=== PATIENT | male | born 1960 | race Caucasian/White ===

== ENCOUNTER 2022-04-12 06:44 | Observation (INO) | payer BC ==
[~2022-04-12] VITALS: Ht 172.7 cm; Wt 95.4 kg
[~2022-04-12 06:44] MED LIST: BAYER CHEWABLE81 MG PO; DICLOFENAC SODI75 MG PO; ESOMEPRAZOLE MA40 MG PO; FLONASE ALLERG9.9 ML NAS; HYDROCHLOROTHIA25 MG PO; LIPITOR20 MG PO; MELOXICAM15 MG PO; METOPROLOL SUCC50 MG PO; OXYCODONE HCL5 MG PO; XARELTO10 MG PO
[2022-04-12] MEDS ORDERED: TYLENOL EXTRA500 MG PO (07:39)
--- NOTE | 2022-04-12 13:34 | NUR ---
04/12/22 1334 Sheets,L[place] 1312 PT ARRIVED TO PACU ON 6L VIA MASK, RESP EVEN AND UNLABORED. PT COUGHING OFF AND ON. PT VERY DROWSY AND UNABLE TO FOLLOW COMMANDS. 1316 PT MORE AWAKE AND O2 REMOVED, PT ABLE TO FOLLOW COMMANDS AND DEEP BREATHING NOTED OFF AND ON. PT COUGHING AND SPITTING OUT SCANT AMOUNT OF CLEAR SPUTUM. HOB INCREASED SLIGHTLY. 1322 MD AT BEDSIDE TALKING TO PT. 1325 XRAY AT BEDSIDE. PT RPEORTS PAIN 5/10 AND TOLERBALE AT THIS TIME. PT DENIES NAUSEA.
--- NOTE | 2022-04-12 14:04 | NUR ---
oriented to the room, call light and menu - rn updated whiteboard, set up cpox, pt in pacu.
[2022-04-12] MEDS ORDERED: FLUTICASONE PRO16 GM NAS (15:28)
[2022-04-12] MEDS ORDERED: METOPROLOL TART50 MG PO (15:30)
--- NOTE | 2022-04-12 16:00 | NUR ---
pt call light answered, pt stated he was all done. upon entering room pt up from bsc and standing up in room w fww. pt assisted back to bed sba w fww. cryo cuff put back on. ice provided to pt. no further needs. call light within reach
--- NOTE | 2022-04-12 16:07 | NUR ---
CALL TO [facility] RE: LACTIC ACID LEVEL 0.9 WNL - UPDATED ON PT 400 ML OUTPUT VOID, AND UP TO BSC WITH PT. NEW ORDERS FOR IV NS@125 AND NO BOLUS NEEDED. PT TOLLERATED A REG DIET OF TUR[place] SAND WITH NO PROBLEMS - CONFIRMED MEDICATIONS WITH PHARMACY AND TXA IS HERE AND STARTED VIA PUMP, FOLLOWED BY FLUIDS. NO BOLUS CONFIRMED WITH PROVIDER. PT IS NOTED TO BE A DRINKER AND IS PALE AND DIAPORETIC, AFEBRILE AT THIS TIME AND DENIES PAIN MEDICATIONS 5/10 LEFT LEG PAIN, WITH CMS WNL AND DRESGING CDI.
--- NOTE | 2022-04-12 16:55 | NUR ---
pt was pale and diaphoretic, reports having heat turned down, and is feeling cool now. pt reports that he usually drinks liquer daily a few drinks but has not had any in a few days - but from time to time he doesn't drink and is ok - re assured him that is was ok, but to let staff know if he felt tremors, or any signs of withdrawl as we can get him something to help. he feels like it was from his fever breaking and is now afebrile at 97. call light in reach.
[2022-04-12] MEDS ORDERED: CLARITIN10 MG PO (17:32)
--- NOTE | 2022-04-12 17:33 | NUR ---
MED REC COMPLETE
--- NOTE | 2022-04-12 18:09 | NUR ---
REGULAR PEPSI PROVIDED TO THIS PT - HE DECLINES DINNER AND STATES HIS WILL BRING IN MEAL. LEFT LEG WNL.
--- NOTE | 2022-04-12 19:15 | NUR ---
ASSUMED CARE OF PT UPON RECEIVING BEDSIDE HANDOFF REPORT FROM DAY NURSE. PT AOX4, NAD, NO C/O. FAMILY MEMBER AT BEDSIDE. PT DECLINES NEED FOR PAIN MED. DRESSSING C/D/I. CRYO CUFF IN PLACE TO LLE. PT TOLERATING WELL. WILL CONTINUE TO MONITOR AND FOLLOW POC.
--- NOTE | 2022-04-12 21:50 | NUR ---
IN TO ANSWER CALL LIGHT. PT LAYING IN BED AND STATES "SHE FILLED THE ICE MACHINE, BUT I DO NOT THINK SHE PLUGGED IT IN." PLUGGED CRYO CUFF TO POWER AND CRYO CUFF STARTS TO WORK. PT STATES "I CAN FEEL IT GETTING COLD NOW." PT REPORTS NO OTHER NEEDS AT THIS TIME. CALL LIGHT IN REACH.
--- NOTE | 2022-04-13 07:03 | NUR ---
PT WITH NO ACUTE EVENTS OVERNIGHT. VSS, NAD, NO C/O, L HIP DRESSING C/D/I. CRYO CUFF IN PLACE. CARE OF PT HANDED OFF TO DAY NURSE DURING BEDSIDE REPORT.
--- NOTE | 2022-04-13 07:48 | NUR ---
RECEIVED SHIFT REPORT. DENIES FUTHER NEEDS. CALL LIGHT WITHIN REACH
--- NOTE | 2022-04-13 09:32 | NUR ---
MORNING ASSESSMENT COMPLETE. PT WALKED FROM BATHROOM TO BED, SBA, FWW. PT DENIES PAIN. CMS INTACT. DRESSING INTACT, SMALL AMOUNT OF RED DRAINAGE, WILL CONTIUNE TO MONITOR. CYROCUFF IN PLACE. HEELS FLOATED. SCDS IN PLACE. DENIES FURTHER NEEDS. CALL LIGHT WITHIN REACH.
--- NOTE | 2022-04-13 11:00 | NUR ---
pt walking in hallway with physical therapy, 1pa, fww.
--- NOTE | 2022-04-13 12:15 | NUR ---
PT IV INFILTRATED, RIGHT HANDED SWOLLEN, ELEVATED. CONTACTED MIGUEL AND ORDERS TO START NEW IV.
--- NOTE | 2022-04-13 12:44 | NUR ---
NEW IV INSERTED, PT TOLERATED WELL. IVF RUNNING AT THIS TIME.
--- NOTE | 2022-04-13 16:08 | NUR ---
PT COMPLAINED OF HEARTBURN, MAALOX ORDERED, ADMINISTERED (PER EMAR). DISCUSSED LEFT LEG DRESSING CHANGE WILL BE CHANGED WHEN BRINGS COMPRESSION SHORTS, PT AGREED. CALL LIGHT WITHIN REACH
--- NOTE | 2022-04-13 18:46 | NUR ---
DRESSING CHANGED. MUKESH INTACT. SURGICAL AQUACEL. BROUGHT PRESSURE SHORTS. PT REQUESTED TO GO ON A WALK, INFORMED PT TO PUSH CALL LIGHT WHEN READY.
--- NOTE | 2022-04-13 19:20 | NUR ---
REPORT RECEIVED FROM MANDY GARCIA. PT LAYING IN BED VISITING WITH FAMILY. PT REQUESTING TO BE UNHOOKED FROM [facility] AND GO FOR A WALK WITH AROUND THE MED/SURG FLOOR. MANDY GARCIA UNHOOKED PT FROM [facility] AND FWW PROVIDED FOR PT TO WALK THE HALLS. PT DENIES ANY OTHER NEEDS AT THIS TIME.
--- NOTE | 2022-04-13 20:33 | NUR ---
IN TO ADMINISTER MEDICATIONS, SEE MAR. PT SITTING UP IN BED. YADIRA RN IN PROVIDING PT WATER. VITALS AND I&Os COMPLETE. ASSESSMENT COMPLETE. LUNG SOUNDS CLEAR. BOWEL TONES ACTIVE. PT REPORTS NO PAIN AT THIS TIME. PEDAL PULSES PALPABLE. DRESSING TO LEFT HIP D/I WITH SMALL AMOUNT OF SHADOWING AT THE TOP OF THE DRESSING. PT DENIES TOILETING NEEDS AT THIS TIME. CPOX IN PLACE. SCDs IN PLACE. IV INFUSING WNL. PT DENIES ANY OTHER NEEDS AT THIS TIME. CALL LIGHT IN REACH.
--- NOTE | 2022-04-14 02:39 | NUR ---
IN TO ADMINISTER MEDICATIONS, SEE MAR. PT REPORTING LOW BACK PAIN 06/26. SCHEDULED TYLENOL ADMINISTERED, SEE APR. ASSESSMENT COMPLETE. LUNG SOUNDS CLEAR. BOWEL TONES ACTIVE. LEFT HIP DRESSING NO CHANGE FROM PREVIOUS ASSESSMENT. SMALL AMOUNT OF SHADOWING NOTED TO TOP OF DRESSING, OTHERWISE D/I. PEDAL PULSES PALPABLE. PT REFUSING CRYO CUFF AT THIS TIME. SCDs IN PLACE. IV INFUSING WNL. PT ON 2L NC WITH O2 SATS AT 96%. PT DENIES ANY OTHER NEEDS AT THIS TIME. CALL LIGHT IN REACH.
--- NOTE | 2022-04-14 04:35 | NUR ---
PT REFUSES CRYO CUFF AT THIS TIME.
--- NOTE | 2022-04-14 05:55 | NUR ---
IN TO ANSWER CALL LIGHT. PT DONE TOILETING. PT REQUESTING TO SIT IN CHAIR. SBA WITH FWW FROM RESTROOM TO CHAIR. PT PUTS SWEAT PANTS ON. VITALS COMPLETE. PT STARTED BACK UP ON FLUIDS. PT REQUESTING COFFEE. WILL RETURN WITH COFFEE.
--- NOTE | 2022-04-14 06:10 | NUR ---
IN TO BRING PT COFFEE. ICE WATER PROVIDED. CRYO CUFF FILLED WITH ICE AND PLACED TO HIP OVER SWEATPANTS. PT DENIES ANY OTHER NEEDS AT THIS TIME. CALL LIGHT IN REACH. IV INFUSING WNL.
--- NOTE | 2022-04-14 08:02 | NUR ---
PT IN RCLINER, AWAKE. NO COMPLAINTS AT THIS TIME. CALL LIGHT WITHIN REACH.
--- NOTE | 2022-04-14 09:20 | NUR ---
MORNING ASSESSMENT COMPLETE. PT BACK IN BED FROM RECLINER. PATTY YING IN ROOM TO DISCUSS POC. PT RATES PAIN 6/10 IN THE LEFT HIP AND BACK. DENIES PRN PAIN MEDICATION AND WANTS TO WAIT TILL SCHEDULE PAIN MEDICATION DOES. LEFT LEG HAS MINIMAL SWELLING, MINOR REDDNESS, AND MINIMAL WARMTH TO THE TOUCH. DRESSING INTACT, SCANT SHADOWING OF DRAINAGE NOTED. PT IS WEARING COMPRESSION SHORTS, PATTY YING OKAY'D PATIENT TO WEAR INSTEAD OF COURTNEY WRAP. CPOX IN PLACE. HR 104 AT REST, SPO2 96% ON RA. AT BEDSIDE, CALL LIGHT WITHIN REACH.
--- NOTE | 2022-04-14 09:44 | NUR ---
PATIENT IN BED AFTER MEAL. VITALS AND I/O'S COMPLETED. FAMILY IN ROOM. CALL LIGHT WITHIN REACH.
--- NOTE | 2022-04-14 12:37 | NUR ---
DR MEZA NOTIFIED UNABLE TO GET PICC LINE PLACED TODAY. NO NEW ORDERS.
--- NOTE | 2022-04-14 13:50 | NUR ---
PATIENT IN CHAIR AFTER MEAL. VITALS AND I/O'S COMPLETED. CALL LIGHT WITHIN REACH.
--- NOTE | 2022-04-14 19:20 | NUR ---
REPORT RECEIVED FROM DAY SHIFT RN. PT LYING IN BED ALERT AND ORIENTED. DENIES NEEDS. WHITE BOARD UPDATED. CALL LIGHT IN REACH.
--- NOTE | 2022-04-14 20:40 | NUR ---
PT UTILIZES CALL LIGHT, REQUESTS PRN PAIN MEDICATION. RATES PAIN 6/10 TO L HIP. STATES THAT IT IS "STARTING TO WAKE UP". PRN AND SCHEDULED MEDICATIONS ADMINISTERED. PT DENIES FURTHER NEEDS AT THIS TIME. CALL LIGHT IN REACH.
--- NOTE | 2022-04-14 21:18 | NUR ---
PT UP TO BR WITH MINIMAL ASSIST AND FWW TO VOID AN UNMEASURED AMOUNT. GAIT STEADY. BACK TO BED, DEBBIE WELL. REPORTS INCREASED PAIN THIS EVENING. SCLEROSCOPE TESTER MEDICATED WITH PRN. TEDS AND CRYO IN PLACE. PT REFUSING SCD'S AT THIS TIME. CMS INTACT. DRESSING TO LEFT HIP WITH OLD SHADOWING. PT WEARING COMPRESSION SHORTS. EVENING ASSESSMENT COMPLETE. IVF INFUSING PER ORDER. PT SpO2 DOWN TO 88%. 2L/NC PLACED FOR THE NOC. PT DENIES QUESTIONS OR CONCERNS. CALL LIGHT IN REACH.
--- NOTE | 2022-04-14 22:41 | NUR ---
PT UP TO BR WITH SBA AND FWW TO VOID. BACK TO BED, DEBBIE WELL. NO FURTHER NEEDS.
--- NOTE | 2022-04-15 02:40 | NUR ---
PT AWAKE IN BED. SCHEDULED MEDS ADMIN PER EMAR. IV IN LEFT UPPER ARM FLUSHED WITH NS. BRISK BLOOD RETURN NOTED. IV ABX INFUSING WNL. PT DENIES PAIN WITH INFUSION. PRN FOR 5/10 BACK/LEFT HIP PAIN ADMIN PER EMAR. DRESSING TO LEFT HIP CHANGED DUE TO SATURATION. INCISION WELL APPROXIMATED WITH MUKESH IN PLACE. PT REFUSING CRYO AND SCD'S AT THIS TIME. EDUCATION PROVIDED. CPOX AND 2L/NC IN PLACE. NO FURTHER NEEDS. CALL LIGHT IN REACH.
--- NOTE | 2022-04-15 03:45 | NUR ---
PT RESTING IN BED WITH EYES CLOSED. RESPIRATIONS EVEN. CALL LIGHT IN REACH.
--- NOTE | 2022-04-15 04:50 | NUR ---
CALL LIGHT ANSWERED. PT UP TO BR WITH MINIMAL SBA TO VOID. GAIT STEADY. PT SITTING IN RECLINER AT THIS TIME. REPORTS LEFT HIP PAIN TOLERABLE. COFFEE PROVIDED. NO FURTHER NEEDS.
--- NOTE | 2022-04-15 05:34 | NUR ---
PT SITTING IN RECLINER. VS AND I&O COMPLETE. TEMP 99.2. ENCOURAGED IS USE. PT DEMONSTRATED CORRECT TECHNIQUE. REPORTS PAIN IS TOLERABLE. PT CONTINUES TO REFUSE ICE AND CRYO CUFF. NO FURTHER NEEDS. CALL LIGHT IN REACH.
--- NOTE | 2022-04-15 06:55 | NUR ---
IV PUMP ALARMING. NEW BAG IV FLUIDS PROVIDED. NO OTHER NEEDS AT THIS TIME. CALL LIGHT IN REACH.
--- NOTE | 2022-04-15 07:06 | OR ---
[facility] [address] [place], [place] [address] Signed DATE OF OPERATION: 04/12/2022 SURGEON: Arthur Kebede MD PREOPERATIVE DIAGNOSIS: Draining wound, left total hip. POSTOPERATIVE DIAGNOSIS: Infected total hip, left. PROCEDURE PERFORMED: Irrigation and debridement left total hip with exchange of poly and femoral head. DESIGN CELL ENGINEER: None. ANESTHESIA: General. BLOOD LOSS: 150 mL. Deep cultures were sent. BRIEF HISTORY: Jo Ann is a 61-year-old gentleman, who had a total hip about a month ago. He subsequently had a couple episodes of light drainage from the inferior aspect of his wound, however, yesterday he contacted us about the drainage recurring and having a fever. He was seen in clinic and scheduled for surgery this morning. Risks and benefits as well as alternatives were discussed with him and he elected to proceed. DESCRIPTION OF THE OPERATION: Once consent was obtained, he was taken to the operating room. After adequate anesthesia, he was placed on the operating room table in the right decubitus position with an axillary roll. All downside pressure points were well padded. The hip was then prepped and draped in a standard sterile fashion. The wound was draining from the inferior aspect of the incision. The incision was then extended an inch and a half distally and the entire incision was then opened with an ellipse around the draining sinus area. Mucopurulent material was encountered under the skin and deep cultures were taken. The skin and fascia were then opened longitudinally. The infection did track into the joint space itself. The soft tissue was then debrided using combination of the knife and rongeurs throughout the soft tissue planes down into the hip and the hip Electronically Signed By: ARTHUR KEBEDE MD 04/15/22 0706 PATIENT NAME: JO ANN UNDERWOOD OPERATIVE REPORT DATE OF : 62 REPORT #: [id number] PHYSICIAN: ARTHUR KEBEDE MD PCP: NO PRIMARY CARE PHYSICIAN REPORT IS CONFIDENTIAL AND NOT TO BE RELEASED WITHOUT AUTHORIZATION [facility] [address], [place] [address] Signed capsule itself. This was all done before dislocating the hip. The top of the femur was debrided sharply removing all soft tissue and debris. Once this was accomplished, the hip was dislocated and the femoral head was removed. The femoral and acetabular components were found to be quite well fixed. The acetabular liner was then removed. The wound was then pulse irrigated using a dilute iodine, 6 L of this was used. Once this was accomplished, all metallic components were washed thoroughly with hydrogen peroxide soaked sponges. Because this was a relatively quick onset of the infection, we did go ahead and elect to proceed with just an exchange and the wound was further soaked in with a bottle of Irrisept. Once this was accomplished, it was thoroughly irrigated with normal saline and the acetabular liner was placed back into the cup and impacted. New femoral head was impacted back onto the femoral stem and the hip was reduced. He had good range of motion. The hip was again thoroughly irrigated with normal saline. The hip capsule was closed using #1 PDS. The vastus layer was closed using #1 PDS. Prior to closing the hip capsule, we did place 1.2 g of tobramycin powder into the joint. The IT band was then closed using #1 PDS, the subcutaneous tissue with 0 PDS and the skin with li. The wound was thoroughly cleaned and an Aquacel dressing was applied. He was then placed in a hip spica Terrance wrap dressing. He tolerated the procedure well. All sponge, needle, and instrument counts were correct. Arthur Kebede MD BA/MODL /[id number] Copies: ~ Electronically Signed By: ARTHUR KEBEDE MD 04/15/22 0706 PATIENT NAME: JO ANN UNDERWOOD OPERATIVE REPORT DATE OF : 62 REPORT #: [id number] PHYSICIAN: ARTHUR KEBEDE MD PCP: NO PRIMARY CARE PHYSICIAN REPORT IS CONFIDENTIAL AND NOT TO BE RELEASED WITHOUT AUTHORIZATION
--- NOTE | 2022-04-15 07:29 | NUR ---
PT UP IN THE CHAIR AT TIME OF SHIFT REPORT. AWAKE AND INTERACTIVE. AGREES HE IS COMFORTABLE, DENIES NEEDS OF. CALL LIGHT AND NEEDED ITEMS IN REACH
--- NOTE | 2022-04-15 09:05 | NUR ---
PT CONTINUES UP IN THE CHAIR THIS SHIFT. TOLERATES MOST OF BREAKFAST, DENIES NEEDS OF ANYTHING. PT AGREES HIS HIP IS SORE, DENIES PAIN. DRESSING TO LEFT HIP IS SATURATED. NOC RN REPORTS HAVING CHANGED THAT DRESSING AT 0200.
--- NOTE | 2022-04-15 10:54 | NUR ---
PT NOTIFIED PICC LINE PLACEMENT PLANNED FOR AROUND NOON. HE CONTINUES UP IN THE CHAIR, IS PRESENT.
--- NOTE | 2022-04-15 13:50 | NUR ---
PICC LINE BEING INSERTED AT THIS TIME
--- NOTE | 2022-04-15 14:23 | NUR ---
PATIENT VISITING WITH . PATIENT HAS A TRAILER THAT PATIENT AND ARE STAYING IN. PATIENT DOES NOT NEED PLACMENT. ALSO PATIENT HAS NO DME NEEDS AT THIS TIME. PATIENT HAS A WALKER ,CANE AND A WHEELCHAIR. PATIENT IS ABLE TO AFFORD FOOD AND MEDICATIONS AND IS ABLE TO WALK UP 2 STEPS TO TRAILER.
--- NOTE | 2022-04-15 14:42 | NUR ---
PICC INSERTION NOTE: ASKED BY DR. MEZA TO EVALUATE PATIENT FOR POTENTIAL PICC LINE INSERTION FOR SOUNDSCRIBER MECHANIC ABX. AFTER REVIEWING THE PATIENT'S CHART AND INTERVIEWING THE PATIENT, NO ABSOLUTE CONTRAINDICATIONS WERE IDENTIFIED, AND PATIENT WAS ABLE TO SIGN CONSENT FORM FOR PICC INSERTION. PT'S RIGHT ARM WAS EVALUATED FIRST USING THE SITE RITE U/S. THE BASILIC, BRACHIAL AND CEPHALIC VEINS WERE ALL IDENTIFIED, BUT THE BASILIC WAS THE BEST CHOICE, SHOWING THAT IT WAS THE LARGEST. IT WAS ESTIMATED PER SITE RADHA THAT A 4FR CATHETER WOULD ONLY TAKE UP 4% OF VEIN DIAMETER. PT'S ARM WAS STERILLY PREPPED AND DRAPED FOLLOWING [facility] RECOMMENDATIONS FOR STERILE PROCEDURE. PT'S VEIN WAS EASILY ACCESSED ON FIRST ATTEMPT AND CATHETER WAS ADVANCED INTO THE VEIN. DARK, BRISK, NON PULSATILE BLOOD WAS RETURNED. THE GUIDEWIRE WAS THEN ADVANCED EASILY WITHOUT RESISTANCE, FOLLOWED BY THE INTRODUCER AND THEN THE PICC LINE. THE Pulse 3CG MAGNET WAS USED TO VISUALIZE THE CATHETER TIP LOCATION INTO THE CENTRAL VASCULATURE INTO THE IDEAL LOCATION. PICC LINE FLUSHES EASILY AND ASPIRATES BLOOD EASILY. A STERILE DRESSING WAS PLACED OVER TOP AND A CHEST XRAY WAS TAKEN. AWAITING RESULTS FROM CHEST XRAY AT THIS TIME BEFORE USING PICC. PATIENT TOLERATED THIS PROCEDURE VERY WELL. PATIENT ENCOURAGED TO ASK QUESTIONS AND REPORT ANY ABNORMAL FINDINGS RELATED TO HIS PICC LINE. EDUCATION MATERIAL LEFT IN CHART FOR PATIENT. REPORT GIVEN TO MANDY TO.
--- NOTE | 2022-04-15 15:37 | NUR ---
PICC LINE PLACEMENT WELL TOLERATED PT VERBALIZES S/S TO REPORT TO STAFF. SITTING UP ON BED IS PRESENT. PT AMBULATES TO TOILET AND BACK INDEPENDENTLY APPEARS STEADY ON HIS FEET. ABX INFUSING. PT WAITING FOR ESE MEZA WANTS TO GO HOME
[2022-04-15] MEDS ORDERED: GABAPENTIN300 MG PO (15:55)
--- NOTE | 2022-04-15 16:02 | NUR ---
DR MEZA IN TO SEE THIS PT DC INSTRUCTIONS DISCUSSED ALL QUESTIONS ANSWERED.
[2022-04-15] MEDS ORDERED: CEFTRIAXONE2 G2 IV (16:20)
--- NOTE | 2022-04-16 09:19 | NUR ---
Received a call from Christi, from [facility]. She states they have not received the PICC line report. She also is asking which HH will be monitoring and teaching antibiotics. Informed I will review and send infor. Christi De La Garza, phone, fax.
--- NOTE | 2022-04-16 11:19 | NUR ---
Contacted [facility] and updated, pt dcd yesterday. Pt does not have pcp, they request if Dr. Kebede is agreeable to sign all orders. Called Dr. Kebede and left a message.
--- NOTE | 2022-04-16 11:54 | NUR ---
Spoke with pt, he is in OP getting IV antibiotics. He states he does have a pcp, Nany Conde, at [facility] [phone]. Pt is currently staying in [place], his home is in [facility]. [place] [address], [place], [place] [address]. His phone does not work at the [facility]. Called and spoke Holli from [facility] and she will update their [place] office as meds will be delivered from [place] and not [place]. Updated if they need to speak with pt, he will be in OP daily at 11:00 until he received his antibiotics and HH.
--- NOTE | 2022-04-16 12:02 | NUR ---
Spoke with Dr. Kebede. He would like SN for antibiotics, not PT/OT at this time. He will sign all orders.
--- NOTE | 2022-04-16 12:16 | NUR ---
late entry 04-15-22 1613. charting noted in wrong chart and moved to correct chart. ORDERS FAXED TO [place] AT [phone] FOR SET UP OF HOME IV ABX. PATIENT IS TO DISCHARGE TONIGHT AND RETURN TO [facility] DAILY ABX UNTIL HOME SERVICES IN PLACE. =
--- NOTE | 2022-04-16 14:30 | NUR ---
Corrected face sheet faxed to [facility] with orders for Ceftriaxone 2 GM IV q day, surgery notes, progress notes, blood culture, and referral faxed to Yesika at [facility]. Received a call from [facility], they have received auth for antibiotics in the home by pts insurance. They will contact [facility]. I again asked for their order form for antibiotic dose, PICC line care, labs. [facility] will request form to be sent.
== END 2022-04-15 16:55 | disposition home or self-care (01) ==
LOC: DS 06:44 → MS 14:10 → DS 14:21 → MS 04-15 16:55
PROVIDERS: ADMIT Specialist; ATTEND Specialist
PROC: 0SPS0JZ Removal of Synthetic Substitute from Left Hip Joint, Femoral Surface, Open Approach (ICD-10-PCS; 2022-04-12)
PROC: 0SRS0JZ Replacement of Left Hip Joint, Femoral Surface with Synthetic Substitute, Open Approach (ICD-10-PCS; principal; 2022-04-12 11:45)
DX: T84.52XA Infection and inflammatory reaction due to internal left hip prosthesis, initial encounter (principal); Y79.2 Prosthetic and other implants, materials and accessory orthopedic devices associated with adverse incidents; Z88.2 Allergy status to sulfonamides; Z20.822 Contact with and (suspected) exposure to COVID-19; I10 Essential (primary) hypertension; E78.5 Hyperlipidemia, unspecified
CPT/HCPCS: 01215; 36415; 36569; 71045; 72170; 80048; 80053; 80202; 83605; 85025; 87040; 94760; 94762; 96366; 96375; 96376; 97110; 97116; 97162; A9270; C1751; C1776; G0378; J0131; J1100; J1885; J2001; J2405; J2704; J3010; J3370; J7030; J7040; J7060; J7121; U0003